=== PATIENT | female | born 1950 | race Caucasian/White ===

== ENCOUNTER 2022-08-14 20:02 | Emergency (ER) | payer MEDICARE ==
[2022-08-15] MEDS ORDERED: CYAN-35 PO (01:52)
[2022-08-15] MEDS ORDERED: TRAM50TA4 PO (01:52)
[2022-08-15] MEDS ORDERED: LEVO88CA4 PO (01:52)
[2022-08-15] MEDS ORDERED: ERGO500093 PO (01:52)
[2022-08-15] MEDS ORDERED: METF-526 PO (01:52)
[2022-08-15] MEDS ORDERED: OMEP20TA20 PO (01:52)
[2022-08-15] MEDS ORDERED: LISI1TAB51 PO (01:52)
== END 2022-08-14 20:35 | disposition home or self-care (01) ==
LOC: EDH 20:02

== ENCOUNTER 2022-08-14 20:23 | Observation (INO) | payer MEDICARE ==
[~2022-08-14] VITALS: Ht 170.2 cm; Wt 86.2 kg
[2022-08-14] MEDS: INSULIN HUMULIN R 100 UNIT/ML 3ML SQ SCH (21:00)
[2022-08-14] MEDS ORDERED: NITROGLYCERIN 0.4 MG SL TAB SL PRN (21:00)
[2022-08-14 21:26] LABS: BASOPHILS % (AUTO) 0.7 % (0.0-5.0); EOSINOPHILS % (AUTO) 3.1 % (0.0-8.0); HEMATOCRIT 36.2 % (36-48); LYMPHOCYTES % (AUTO) 23.5 % (21.0-51.0); MEAN CORPUSCULAR HEMOGLOBIN 27.3 pg (27.0-33.0); MEAN CORPUSCULAR HGB CONC 32.9 g/dL (32.0-36.0); NEUTROPHILS % (AUTO) 65.4 % (40.0-77.0); PLATELET COUNT (AUTO) 225 K/uL (130-400); RED BLOOD CELL COUNT(AUTO) 4.36 MIL/uL (4.00-5.50); RED CELL DISTRIBUTION WIDTH 13.4 % (11.0-15.5)
[2022-08-14 21:37] LABS: CREATININE 1.4 mg/dL (0.5-1.5); INR 0.93 (0.85-1.15); POTASSIUM 3.4 mmol/L (3.5-5.1); PROTHROMBIN TIME 10.1 SEC (9.6-11.6)
[2022-08-14 21:39] LABS: PARTIAL THROMBOPLASTIN TIME 23.4 SEC (26.3-35.5)
[2022-08-14 21:56] LABS: ALBUMIN 3.8 g/dL (3.5-5.0); MAGNESIUM 1.6 mg/dL (1.80-2.40)
[2022-08-14 23:20] VITALS: BP 142/89
[2022-08-15] MEDS ORDERED: LISI1TAB51 PO (01:52)
[2022-08-15] MEDS ORDERED: LEVO88CA4 PO (01:52)
[2022-08-15] MEDS ORDERED: CYAN-35 PO (01:52)
[2022-08-15] MEDS ORDERED: ERGO500093 PO (01:52)
[2022-08-15] MEDS ORDERED: OMEP20TA20 PO (01:52)
[2022-08-15] MEDS ORDERED: TRAM50TA4 PO (01:52)
[2022-08-15] MEDS ORDERED: METF-526 PO (01:52)
[2022-08-15] MEDS ORDERED: TRAMADOL HCL 50 MG TABLET PO PRN (02:00)
[2022-08-15 04:00] VITALS: BP 120/69
[2022-08-15] MEDS: INSULIN HUMULIN R 100 UNIT/ML 3ML SQ SCH ×4 (05:35→21:52)
[2022-08-15] MEDS: LEVOTHYROXINE 88 MCG TABLET PO SCH ×2 (05:35→13:12)
[2022-08-15] MEDS ORDERED: REGADENOSON 0.4 MG/5 ML PF SYG IVP SCH (07:00)
[2022-08-15 07:25] VITALS: BP 126/68
[2022-08-15] MEDS ORDERED: POTASSIUM CHLORIDE 20MEQ/100ML 100 ML IV PRN (07:30)
[2022-08-15] MEDS ORDERED: POTASSIUM CHLORIDE 10% ELIXIR 20 MEQ/15 ML UDCUP PO PRN (07:30)
[2022-08-15] MEDS ORDERED: MAGNESIUM 2GM PREMIX 50ML 50 ML IV PRN (07:30)
[2022-08-15] MEDS ORDERED: LIDOCAINE HCL-MPF 1% 2ML VIAL IV PRN (07:30)
[2022-08-15] MEDS ORDERED: METFORMIN HCL 500 MG TAB.SR.24H PO SCH (08:00)
[2022-08-15] MEDS: ERGOCALCIFEROL PO SCH (09:00)
[2022-08-15] MEDS: ASPIRIN 81 MG EC TAB PO SCH (09:07)
[2022-08-15] MEDS: ENOXAPARIN SODIUM 40 MG/0.4 ML SYRINGE SQ SCH (09:08)
[2022-08-15 11:30] VITALS: BP 137/95
[2022-08-15] MEDS: HYDROCHLOROTHIAZIDE 25 MG TABLET PO SCH (13:10)
[2022-08-15] MEDS: CYANOCOBALAMIN (VITAMIN B-12) 1,000 MCG TABLET PO SCH (13:11)
[2022-08-15] MEDS: LISINOPRIL 20 MG TABLET PO SCH (13:11)
[2022-08-15] MEDS: PANTOPRAZOLE 40 MG TAB DR PO SCH (13:11)
[2022-08-15] MEDS: KCL 20 MEQ ERTAB PO PRN ×2 (13:11→17:22)
[2022-08-15 15:30] VITALS: BP 123/70
[2022-08-15 20:00] VITALS: BP 127/55
[2022-08-16] VITALS (11 sets, daily range): BP systolic 102–132; BP diastolic 53–73
[2022-08-16 04:39] LABS: MEAN CORPUSCULAR HEMOGLOBIN 26.9 pg (27.0-33.0); MEAN CORPUSCULAR HGB CONC 32.2 g/dL (32.0-36.0); MEAN CORPUSCULAR VOLUME 83.5 fL (79-99); RED BLOOD CELL COUNT(AUTO) 4.43 MIL/uL (4.00-5.50); RED CELL DISTRIBUTION WIDTH 13.5 % (11.0-15.5); WHITE BLOOD COUNT (AUTO) 7.2 K/uL (4.8-10.8)
[2022-08-16 05:00] LABS: CREATININE 1.4 mg/dL (0.5-1.5); MAGNESIUM 1.9 mg/dL (1.80-2.40); POTASSIUM 4.3 mmol/L (3.5-5.1)
[2022-08-16 05:02] LABS: INR 0.93 (0.85-1.15); PROTHROMBIN TIME 10.1 SEC (9.6-11.6)
[2022-08-16 05:04] LABS: PARTIAL THROMBOPLASTIN TIME 23.8 SEC (26.3-35.5)
[2022-08-16] MEDS: INSULIN HUMULIN R 100 UNIT/ML 3ML SQ SCH ×3 (06:12→16:30)
[2022-08-16] MEDS ORDERED: 0.9% NACL 500ML IV.SOLN 500 ML IV SCH (08:00)
[2022-08-16] MEDS: ASPIRIN 81 MG EC TAB PO SCH (09:00)
[2022-08-16] MEDS: CYANOCOBALAMIN (VITAMIN B-12) 1,000 MCG TABLET PO SCH (09:00)
[2022-08-16] MEDS: HYDROCHLOROTHIAZIDE 25 MG TABLET PO SCH (09:00)
[2022-08-16] MEDS: PANTOPRAZOLE 40 MG TAB DR PO SCH (09:00)
[2022-08-16] MEDS: ENOXAPARIN SODIUM 40 MG/0.4 ML SYRINGE SQ SCH (09:00)
[2022-08-16] MEDS: LISINOPRIL 20 MG TABLET PO SCH (09:00)
[2022-08-16] MEDS: ERGOCALCIFEROL PO SCH (09:00)
[2022-08-16] MEDS ORDERED: IOHEXOL 350 MG/ML 100ML INFUS..BTL IV ONE (13:31)
[2022-08-16] MEDS ORDERED: VERAPAMIL HCL 2.5 MG/ML VIAL ONE (13:31)
[2022-08-16] MEDS ORDERED: HEPARIN 10,000 UNIT/10ML (1,000 UNIT/ML) VIAL ONE (13:31)
[2022-08-16] MEDS ORDERED: MIDAZOLAM HCL 1 MG/ML 2ML VIAL ONE (13:32)
[2022-08-16] MEDS ORDERED: FENTANYL CITRATE PF 50 MCG/1 ML 2ML VIAL ONE (13:32)
[2022-08-16] MEDS ORDERED: ISOVUE-370 50ML VIAL IV ONE (13:32)
[2022-08-16] MEDS ORDERED: NITROGLYCERIN 50MG VIAL ONE (13:32)
[2022-08-16] MEDS ORDERED: LIDOCAINE HCL 400MG/20ML VIAL ONE (13:32)
[2022-08-16] MEDS ORDERED: 0.9%NACL 1000ML 1,000 ML IV SCH (15:00)
[2022-08-17 00:06] VITALS: BP 105/58
[2022-08-17 04:15] VITALS: BP 116/58
[2022-08-17 04:44] LABS: BASOPHILS % (AUTO) 0.6 % (0.0-5.0); EOSINOPHILS % (AUTO) 2.6 % (0.0-8.0); LYMPHOCYTES % (AUTO) 19.6 % (21.0-51.0); MEAN CORPUSCULAR HEMOGLOBIN 26.8 pg (27.0-33.0); MEAN CORPUSCULAR HGB CONC 32.3 g/dL (32.0-36.0); MEAN CORPUSCULAR VOLUME 82.9 fL (79-99); MONOCYTES % (AUTO) 7.4 % (3.0-13.0); NEUTROPHILS % (AUTO) 69.5 % (40.0-77.0); PLATELET COUNT (AUTO) 226 K/uL (130-400); RED BLOOD CELL COUNT(AUTO) 4.22 MIL/uL (4.00-5.50); RED CELL DISTRIBUTION WIDTH 13.6 % (11.0-15.5); WHITE BLOOD COUNT (AUTO) 6.9 K/uL (4.8-10.8)
[2022-08-17 05:05] LABS: ALBUMIN 3.3 g/dL (3.5-5.0); CREATININE 1.5 mg/dL (0.5-1.5); POTASSIUM 3.7 mmol/L (3.5-5.1); TOTAL PROTEIN, SERUM 6.4 g/dL (6.0-8.3)
[2022-08-17] MEDS: LEVOTHYROXINE 88 MCG TABLET PO SCH (06:44)
[2022-08-17] MEDS: INSULIN HUMULIN R 100 UNIT/ML 3ML SQ SCH (06:47)
[2022-08-17 08:00] VITALS: BP 122/59
[2022-08-17] MEDS: ASPIRIN 81 MG EC TAB PO SCH (09:00)
[2022-08-17] MEDS: PANTOPRAZOLE 40 MG TAB DR PO SCH (09:00)
[2022-08-17] MEDS: LISINOPRIL 20 MG TABLET PO SCH (09:00)
[2022-08-17] MEDS: ERGOCALCIFEROL PO SCH (09:00)
[2022-08-17] MEDS ORDERED: ISOSORBIDE MONO 30MG SR TAB PO SCH (09:00)
[2022-08-17] MEDS: ENOXAPARIN SODIUM 40 MG/0.4 ML SYRINGE SQ SCH (09:00)
[2022-08-17] MEDS: HYDROCHLOROTHIAZIDE 25 MG TABLET PO SCH (09:01)
[2022-08-17] MEDS: CYANOCOBALAMIN (VITAMIN B-12) 1,000 MCG TABLET PO SCH (09:01)
== END 2022-08-17 09:35 | disposition home or self-care (01) ==
LOC: EDH 20:23 → EDHIP 21:03 → INTOOBSV 21:03 → 4DH 22:53
PROVIDERS: ADMIT Internal Medicine; ATTEND Internal Medicine
DX: I25.110 Atherosclerotic heart disease of native coronary artery with unstable angina pectoris (principal); Z20.822 Contact with and (suspected) exposure to COVID-19; E11.9 Type 2 diabetes mellitus without complications; I10 Essential (primary) hypertension; E78.5 Hyperlipidemia, unspecified; Z79.899 Other long term (current) drug therapy
CPT/HCPCS: 82550 ×3; 83735 ×2; 83874 ×3; 84484 ×3; 80053 ×2; 85025 ×2; 85610 ×2; 85730 ×2; 36415 ×4; 87635; 71045; 93005 ×2; 96372; 82948 ×9; 93017; 78452; 93458; 80048; 85027; J1815 ×3; G0378 ×44; J3475; J1650; J2785; A9500 ×2; C1894 ×2; C1760; Q9965; Q9967 ×2; J3010; J3490 ×2; J2250; J1644; 96374; 99156; 99157

== ENCOUNTER → 2023-05-16 | Outpatient (CLI) | payer MEDICARE ==
[~2023-05-16] MED LIST: CYAN-35 PO; ERGO500093 PO; LEVO88CA4 PO; LISI1TAB51 PO; METF-526 PO; OMEP20TA20 PO; TRAM50TA4 PO
== END | disposition home or self-care (01) ==
LOC: RAH 09:08
PROVIDERS: ATTEND Internal Medicine
DX: S46.009A Unspecified injury of muscle(s) and tendon(s) of the rotator cuff of unspecified shoulder, initial encounter (principal); M19.012 Primary osteoarthritis, left shoulder; X58.XXXA Exposure to other specified factors, initial encounter; Y93.89 Activity, other specified; Y92.89 Other specified places as the place of occurrence of the external cause; Y99.8 Other external cause status
CPT/HCPCS: 73030

== ENCOUNTER → 2024-08-06 | Outpatient (CLI) | payer MEDICARE | END | disposition home or self-care (01) | LOC: SHCH 15:34 | PROVIDERS: ATTEND Internal Medicine | DX: R94.31 Abnormal electrocardiogram [ECG] [EKG] (principal) | CPT/HCPCS: 93306 ==